=== PATIENT | female | born 1955 | race Caucasian/White ===

== ENCOUNTER 2023-03-28 19:06 | Emergency (ER) | payer OTHER ==
[~2023-03-28] VITALS: Ht 162.6 cm; Wt 62.6 kg
[2023-03-28 19:20] VITALS: BP_SYST 147; PULSE 92; RESP 18; TEMP 97.3; O2SAT 96
[2023-03-28] MEDS ORDERED: KETOROLAC TROMETHAMINE 30 MG VIAL IM ONE (20:00)
[2023-03-28 22:05] VITALS: BP_SYST 134; PULSE 90; RESP 16; TEMP 97.3; O2SAT 96
== END 2023-03-28 22:05 | disposition home or self-care (01) ==
LOC: SED 19:06
DX: S86.811A Strain of other muscle(s) and tendon(s) at lower leg level, right leg, initial encounter (principal); Z79.899 Other long term (current) drug therapy; X58.XXXA Exposure to other specified factors, initial encounter; Y93.89 Activity, other specified; Y92.89 Other specified places as the place of occurrence of the external cause; Y99.8 Other external cause status
CPT/HCPCS: 99285; 93971; 96372; J1885